=== PATIENT | male | born 1975 | race Caucasian/White ===

== ENCOUNTER 2022-01-24 16:14 | Emergency (ER) | payer OTHER, BC ==
[2022-01-24 16:19] VITALS: RESP 18
[2022-01-24] MEDS ORDERED: ACETAMINOPHEN TAB 325 MG TAB PO STA (16:39)
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
--- NOTE | 2022-01-24 17:11 | XR ---
EXAMINATION TYPE: XR chest 2V DATE OF EXAM: 01/24/2022 COMPARISON: NONE HISTORY: Pain TECHNIQUE: 2 views FINDINGS: Heart and mediastinum are normal. Lungs are clear. Diaphragm is normal. Bony thorax appears normal. IMPRESSION: Normal chest.
--- NOTE | 2022-01-24 17:12 | XR ---
EXAMINATION TYPE: XR pelvis AP view DATE OF EXAM: 01/24/2022 COMPARISON: NONE HISTORY: Pain TECHNIQUE: Single view FINDINGS: Pelvic ring is intact. Proximal femurs and hip joints are intact. Sacroiliac joints are int act IMPRESSION: Normal pelvis. No fracture.
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
[2022-01-24 18:15] VITALS: BP 122/76; PULSE 88; TEMP 98.7
== END 2022-01-24 17:45 | disposition home or self-care (01) ==
LOC: EC 16:14
DX: M79.18 Myalgia, other site (principal); V89.2XXA Person injured in unspecified motor-vehicle accident, traffic, initial encounter
CPT/HCPCS: 71046; 72125; 72170; 99284

== ENCOUNTER → 2023-05-23 | Outpatient (CLI) | payer BC | END | disposition home or self-care (01) | LOC: RADCTMAIN 07:01 | PROVIDERS: ATTEND Family Medicine | DX: Z53.9 Procedure and treatment not carried out, unspecified reason (principal) ==

== ENCOUNTER → 2023-06-11 | Outpatient (CLI) | payer BC ==
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
== END | disposition home or self-care (01) ==
LOC: RADCTMAIN 09:01
PROVIDERS: ATTEND Family Medicine
DX: E78.5 Hyperlipidemia, unspecified (principal)
CPT/HCPCS: 75571